=== PATIENT | male | born 1980 | race Caucasian/White ===

== ENCOUNTER 2017-12-18 18:55 | Emergency (ER) | payer MEDICAID, OTHER ==
[~2017-12-18] VITALS: Ht 182.9 cm; Wt 77.0 kg
[~2017-12-18 18:55] MED LIST: CYCL-1 PO; HYDR-569 PO; MELO-100 PO
[2017-12-18 19:00] VITALS: BP 131/91
[2017-12-18] MEDS ORDERED: VALA10002 PO (19:26)
== END 2017-12-18 19:42 | disposition home or self-care (01) ==
LOC: ER 18:57
DX: A60.01 Herpesviral infection of penis (principal); G89.29 Other chronic pain; Z79.899 Other long term (current) drug therapy
CPT/HCPCS: 99283

== ENCOUNTER 2017-12-31 11:33 | Emergency (ER) | payer MEDICAID, OTHER ==
[~2017-12-31] VITALS: Ht 647.4 cm; Wt 79.5 kg
[~2017-12-31 11:33] MED LIST changes: +VALA10002 PO
[2017-12-31 12:06] VITALS: BP 131/84
[2017-12-31] MEDS ORDERED: ibuprofen tablet 400 MG TABLET PO ONE (12:20)
[2017-12-31] MEDS ORDERED: bacitracin 15gm ointment TP ONE (12:20)
[2017-12-31] MEDS ORDERED: LIDOcaine 1.5% w/epinephrine 1:200,000 5ml ampul IJ ONE (12:20)
[2017-12-31] MEDS ORDERED: doxycycline hyclate 100mg tablet.DR PO ONE (12:20)
[2017-12-31] MEDS ORDERED: TETanus/Pertussis (Acell)/Diphther VAC/PF (Tdap-Adult) 0.5ml syringe IM ONE (12:20)
[2017-12-31] MEDS ORDERED: ondansetron 4mg rapidly disintigrating tab PO ONE (12:20)
[2017-12-31] MEDS ORDERED: DOXY100C43 PO (12:52)
[2017-12-31] MEDS ORDERED: ACYC-202 PO (12:52)
== END 2017-12-31 13:11 | disposition home or self-care (01) ==
LOC: ER 11:34
DX: L02.415 Cutaneous abscess of right lower limb (principal); N50.9 Disorder of male genital organs, unspecified; G89.29 Other chronic pain; Z98.890 Other specified postprocedural states; Z79.899 Other long term (current) drug therapy
CPT/HCPCS: 10060; 90471; 90715; 99284; A6255; A6266; A6449; J3490

== ENCOUNTER 2018-03-06 21:34 | Emergency (ER) | payer MEDICAID, OTHER ==
[~2018-03-06] VITALS: Ht 185.4 cm; Wt 74.0 kg
[2018-03-06 22:20] LABS: BASOPHILS # (AUTO) 0.1 X10'3 (0-0.2); BASOPHILS % (AUTO) 1.2 % (0-1); EOSINOPHILS # (AUTO) 0.1 X10'3 (0-0.9); EOSINOPHILS % (AUTO) 1.2 % (0-6); HEMATOCRIT 43.3 % (42.0-52.0); HEMOGLOBIN 15.1 g/dl (14.0-17.9); LYMPHOCYTES # (AUTO) 2.2 X10'3 (1.1-4.8); LYMPHOCYTES % (AUTO) 23.1 % (21-51); MEAN CORPUSCULAR HEMOGLOBIN 31.6 PG (27.0-31.0); MEAN CORPUSCULAR HGB CONC 34.8 % (33.0-36.5); MEAN CORPUSCULAR VOLUME 90.8 FL (78-98); MEAN PLATELET VOLUME 8.6 FL (7.4-10.4); MONOCYTES # (AUTO) 0.7 X10'3 (0-0.9); MONOCYTES % (AUTO) 7.7 % (2-12); NEUTROPHILS # (AUTO) 6.4 X10'3 (1.8-7.7); NEUTROPHILS % (AUTO) 66.8 % (42-75); PLATELET COUNT 214 X10'3 (140-440); RED BLOOD COUNT 4.77 X10'6 (4.70-6.10); RED CELL DISTRIBUTION WIDTH 13.5 % (11.5-14.5); WHITE BLOOD COUNT 9.6 X10'3 (4.5-11.0)
[2018-03-06] MEDS ORDERED: ondansetron/PF 4mg/2ml inj IV ONE (22:20)
[2018-03-06] MEDS ORDERED: morphine 4 MG/ML inj SYRINge IV ONE (22:20)
[2018-03-06] MEDS ORDERED: normal saline 1000ml 1,000 ML IV ONE (22:20)
[2018-03-06] MEDS ORDERED: iohexol 300mg/ml 100ml inj. ONE (22:26)
[2018-03-06 22:29] LABS: PROTHROMBIN TIME 10.5 SECONDS (9.0-12.0)
[2018-03-06 22:35] LABS: ALANINE AMINOTRANSFERASE 41 U/L (12-78); ALBUMIN/GLOBULIN RATIO 1.1 (1.1-1.5); ALKALINE PHOSPHATASE 92 IU/L (46-116); AMYLASE 40 U/L (25-115); ANION GAP 11 (8-16); ASPARTATE AMINO TRANSFERASE 31 U/L (10-37); BILIRUBIN,TOTAL 0.6 MG/DL (0.1-1.0); BLOOD UREA NITROGEN 15 MG/DL (7-18); BUN/CREATININE RATIO 13.3 (5.4-32.0); CHLORIDE 103 MMOL/L (99-107); CREATININE 1.13 MG/DL (0.60-1.10); GLUCOSE 100 MG/DL (70-104); LIPASE 112 U/L (73-393); SODIUM 137 MMOL/L (135-145); TOTAL CARBON DIOXIDE 23.2 MMOL/L (24-32); TOTAL PROTEIN 7.7 G/DL (6.4-8.2); eGFR 73 ML/MIN
[2018-03-07 00:41] LABS: CLARITY,URINE CLEAR (Clear); COLOR,URINE YELLOW (Yellow); GLUCOSE, URINE NEGATIVE (Neg); KETONES,URINE NEGATIVE (Neg); LEUKOCYTE ESTERASE ,URINE NEGATIVE (Neg); NITRITES, URINE NEGATIVE (Neg); OCCULT BLOOD,URINE NEGATIVE (Neg); PH,URINE 5.5 (4.8-8.0); PROTEIN,URINE NEGATIVE (Neg); UROBILINOGEN,URINE 0.2 E.U/dL (0.2-1.0)
[2018-03-07 00:49] LABS: UA COLLECTION TYPE CLN CATCH MIDSTREAM
[2018-03-07 00:51] LABS: URINE AMPHETAMINE SCREEN POSITIVE (Neg); URINE BARBITUATE SCREEN NEGATIVE (Neg); URINE BENZODIAZEPINES SCREEN NEGATIVE (Neg); URINE CANNABINOID SCREEN POSITIVE (Neg); URINE COCAINE SCREEN NEGATIVE (Neg); URINE METHADONE SCREEN NEGATIVE (Neg); URINE OPIATE SCREEN POSITIVE (Neg); URINE PHENCYCLIDINE SCREEN NEGATIVE (Neg)
[2018-03-07] MEDS ORDERED: methylnaltrexone br 12mg/0.6ml inj***SubQ only SQ ONE (01:25)
[2018-03-07] MEDS ORDERED: MAGN296S50 PO (01:28)
[2018-03-07 01:49] VITALS: BP 118/71
== END 2018-03-07 01:52 | disposition home or self-care (01) ==
LOC: ER 21:34
DX: K59.03 Drug induced constipation (principal); R10.31 Right lower quadrant pain; F15.10 Other stimulant abuse, uncomplicated; F11.10 Opioid abuse, uncomplicated; G89.29 Other chronic pain; Z98.890 Other specified postprocedural states; Z79.899 Other long term (current) drug therapy
CPT/HCPCS: 36415; 74177; 80053; 80305; 81003; 82150; 83690; 85025; 85610; 96372; 96374; 96375; 99285; J2270; J2405; J7030; Q9967

== ENCOUNTER 2018-12-02 23:52 | Emergency (ER) | payer OTHER ==
[~2018-12-02] VITALS: Ht 185.4 cm; Wt 77.2 kg
[~2018-12-02 23:52] MED LIST changes: +HYDR-4383 PO; -HYDR-569 PO; +MAGN296S50 PO
[2018-12-03 00:10] VITALS: BP 115/73
--- NOTE | 2018-12-03 01:08 | NUR ---
PT STATES HE THINKS HE'S BEEN RUNNING FEVERS LATELY, IS CONCERNED THAT HIS LEG MAY BE INFECTED AT THE SITE OF AN OLD COMPOUND FX. PT STATES THE SWELLING TO THE LEG IS NEW, SLIGHT SWELLING NOTED ABOUT 4 INCHES ABOVE HIS ANKLE
[2018-12-03] MEDS ORDERED: CEPH250T PO (02:16)
[2018-12-03] MEDS ORDERED: ketorolac trometh inj. 60 MG/2 ML VIAL IM ONE (02:20)
[2018-12-03] MEDS ORDERED: cephalexin 250mg capsule PO ONE (02:20)
== END 2018-12-03 03:04 | disposition home or self-care (01) ==
LOC: ER 23:53
DX: M79.604 Pain in right leg (principal); G89.29 Other chronic pain; Z79.2 Long term (current) use of antibiotics; Z79.899 Other long term (current) drug therapy; Z98.890 Other specified postprocedural states
CPT/HCPCS: 73590; 99283; J1885

== ENCOUNTER 2019-03-12 22:43 | Emergency (ER) | payer MEDICAID, OTHER ==
[~2019-03-12] VITALS: Ht 182.9 cm; Wt 55.1 kg
[~2019-03-12 22:43] MED LIST changes: +CLIN-96 PO; -CYCL-1 PO; -HYDR-4383 PO; -MAGN296S50 PO; -MELO-100 PO; +NO HOME MEDS; -VALA10002 PO
[2019-03-12] MEDS ORDERED: CEPH500C5 PO (23:38)
[2019-03-12] MEDS ORDERED: SULF1TAB49 PO (23:38)
[2019-03-12 23:42] LABS: BASOPHILS % (AUTO) 0.4 % (0-1); EOSINOPHILS # (AUTO) 0.3 X10'3 (0-0.9); EOSINOPHILS % (AUTO) 2.9 % (0-6); HEMATOCRIT 40.4 % (42.0-52.0); LYMPHOCYTES # (AUTO) 1.6 X10'3 (1.1-4.8); LYMPHOCYTES % (AUTO) 18.1 % (21-51); MEAN CORPUSCULAR HEMOGLOBIN 31.5 PG (27.0-31.0); MEAN CORPUSCULAR HGB CONC 34.6 g/dL (33.0-36.5); MEAN CORPUSCULAR VOLUME 90.9 FL (78-98); MEAN PLATELET VOLUME 8.1 FL (7.4-10.4); MONOCYTES # (AUTO) 0.8 X10'3 (0-0.9); MONOCYTES % (AUTO) 8.8 % (2-12); NEUTROPHILS # (AUTO) 6.3 X10'3 (1.8-7.7); NEUTROPHILS % (AUTO) 69.8 % (42-75); PLATELET COUNT 187 X10'3 (140-440); RED BLOOD COUNT 4.45 X10'6 (4.70-6.10); RED CELL DISTRIBUTION WIDTH 12.9 % (11.5-14.5)
[2019-03-13] LABS: ALANINE AMINOTRANSFERASE 33 U/L (12-78); ALBUMIN 3.8 G/DL (3.4-5.0); ALBUMIN/GLOBULIN RATIO 1.1 (1.1-1.5); ALKALINE PHOSPHATASE 111 IU/L (46-116); ANION GAP 8 (8-16); ASPARTATE AMINO TRANSFERASE 25 U/L (10-37); BILIRUBIN,TOTAL 0.3 MG/DL (0.1-1.0); BLOOD UREA NITROGEN 18 MG/DL (7-18); BUN/CREATININE RATIO 16.1 (5.4-32.0); CALCIUM 8.5 MG/DL (8.5-10.1); CHLORIDE 106 MMOL/L (99-107); CREATININE 1.12 MG/DL (0.60-1.10); GLUCOSE 101 MG/DL (70-104); POTASSIUM 3.4 MMOL/L (3.5-5.1); SODIUM 141 MMOL/L (135-145); TOTAL CARBON DIOXIDE 26.7 MMOL/L (24-32); TOTAL PROTEIN 7.4 G/DL (6.4-8.2); eGFR 74 ML/MIN
[2019-03-13 00:02] VITALS: BP 121/68
== END 2019-03-13 00:04 | disposition home or self-care (01) ==
LOC: ER 22:43
DX: L03.116 Cellulitis of left lower limb (principal); R59.0 Localized enlarged lymph nodes; G89.29 Other chronic pain; F15.90 Other stimulant use, unspecified, uncomplicated; Z98.890 Other specified postprocedural states; Z59.0 Homelessness; Z79.2 Long term (current) use of antibiotics
CPT/HCPCS: 36415; 80053; 85025; 99283

== ENCOUNTER 2020-02-03 16:36 | Emergency (ER) | payer OTHER ==
[~2020-02-03] VITALS: Ht 185.4 cm; Wt 78.0 kg
[~2020-02-03 16:36] MED LIST changes: -CLIN-96 PO; +CLIN-97 PO
[2020-02-03 16:56] VITALS: BP 122/69
[2020-02-03 17:18] LABS: CLARITY,URINE CLEAR (Clear); COLOR,URINE YELLOW (Yellow); GLUCOSE, URINE NEGATIVE (Neg); KETONES,URINE NEGATIVE (Neg); LEUKOCYTE ESTERASE ,URINE NEGATIVE (Neg); NITRITES, URINE NEGATIVE (Neg); OCCULT BLOOD,URINE NEGATIVE (Neg); PH,URINE 5.5 (4.8-8.0); PROTEIN,URINE NEGATIVE (Neg); UROBILINOGEN,URINE 0.2 E.U/dL (0.2-1.0)
[2020-02-03 17:23] LABS: UA COLLECTION TYPE CLN CATCH MIDSTREAM
[2020-02-03] MEDS ORDERED: DOXY100C76 PO (17:44)
[2020-02-03] MEDS ORDERED: CefTRIAXone 250MG IM Kit w/LIDOcaine IM ONE (17:45)
== END 2020-02-03 18:11 | disposition home or self-care (01) ==
LOC: ER 16:36
DX: Z20.2 Contact with and (suspected) exposure to infections with a predominantly sexual mode of transmission (principal); R30.0 Dysuria; N50.812 Left testicular pain; N50.811 Right testicular pain; G89.29 Other chronic pain; F15.90 Other stimulant use, unspecified, uncomplicated; Z59.0 Homelessness; Z98.890 Other specified postprocedural states; Z72.89 Other problems related to lifestyle; Z79.899 Other long term (current) drug therapy
CPT/HCPCS: 36415; 81003; 87491; 87591; 96372; 99283; J0696

== ENCOUNTER 2020-02-06 18:01 | Inpatient (IN) | payer MEDICAID, OTHER ==
[~2020-02-06] VITALS: Ht 185.4 cm; Wt 79.0 kg
[~2020-02-06 18:01] MED LIST changes: +DOXY100C76 PO
--- NOTE | 2020-02-06 18:58 | NUR ---
ASSISTING RN WITH PT CARE, PT IS 39 YO MALE C/O HIP AND BUTTOCK PAIN 04/30, +CHILLS, X1DAY, INJECTED DRIED BONG WATER IN LEFT AC TODAY AT 1100, PT WAS TREATED FOR STD 2 DAYS AGO, RECEIVED ROCEPHIN SHOT,
[2020-02-06 18:59] LABS: BASOPHILS % (AUTO) 0.2 % (0-1); EOSINOPHILS % (AUTO) 0.1 % (0-6); HEMATOCRIT 41.3 % (42.0-52.0); HEMOGLOBIN 14.1 g/dl (14.0-17.9); LYMPHOCYTES # (AUTO) 0.4 X10'3 (1.1-4.8); LYMPHOCYTES % (AUTO) 3.2 % (21-51); MEAN CORPUSCULAR HEMOGLOBIN 30.6 PG (27.0-31.0); MEAN CORPUSCULAR HGB CONC 34.3 g/dL (33.0-36.5); MEAN CORPUSCULAR VOLUME 89.5 FL (78-98); MEAN PLATELET VOLUME 8.5 FL (7.4-10.4); MONOCYTES # (AUTO) 0.3 X10'3 (0-0.9); MONOCYTES % (AUTO) 2.6 % (2-12); NEUTROPHILS # (AUTO) 12.1 X10'3 (1.8-7.7); NEUTROPHILS % (AUTO) 93.9 % (42-75); PLATELET COUNT 171 X10'3 (140-440); RED BLOOD COUNT 4.62 X10'6 (4.70-6.10); RED CELL DISTRIBUTION WIDTH 13.2 % (11.5-14.5); WHITE BLOOD COUNT 12.9 X10'3 (4.5-11.0)
[2020-02-06 19:14] LABS: ALANINE AMINOTRANSFERASE 31 U/L (12-78); ALBUMIN/GLOBULIN RATIO 1.2 (1.1-1.5); ALKALINE PHOSPHATASE 78 IU/L (46-116); ANION GAP 9 (8-16); ASPARTATE AMINO TRANSFERASE 27 U/L (10-37); BILIRUBIN,TOTAL 0.8 MG/DL (0.1-1.0); BLOOD UREA NITROGEN 11 MG/DL (7-18); BUN/CREATININE RATIO 8.3 (5.4-32.0); CALCIUM 8.6 MG/DL (8.5-10.1); CHLORIDE 103 MMOL/L (99-107); CREATININE 1.33 MG/DL (0.60-1.10); GLUCOSE 106 MG/DL (70-104); POTASSIUM 3.8 MMOL/L (3.5-5.1); SODIUM 137 MMOL/L (135-145); TOTAL CARBON DIOXIDE 24.9 MMOL/L (24-32); TOTAL PROTEIN 7.4 G/DL (6.4-8.2); eGFR 60 ML/MIN
[2020-02-06] MEDS ORDERED: acetaminophen 325mg tablet PO ONE (19:15)
[2020-02-06] MEDS ORDERED: LORazepam 2 mg/ml vial IV ONE (19:15)
[2020-02-06] MEDS ORDERED: piperacillin/tazo 3.375gm/50ml 50 ML IV ONE (20:00)
[2020-02-06] MEDS ORDERED: CefTRIAXone/D5W-Rocephin 1gm 50 ML IV ONE (20:00)
[2020-02-06] MEDS ORDERED: clindamycin 600mg/D5W 50ml 50 ML IV ONE (20:55)
[2020-02-06] MEDS ORDERED: mag hydrox/Alum hydrox/simeth 30ml oral suspension PO PRN (21:15)
[2020-02-06] MEDS ORDERED: ondansetron/PF 4mg/2ml inj IV PRN (21:15)
[2020-02-06] MEDS ORDERED: acetaminophen 325mg tablet PO PRN (21:15)
[2020-02-06] MEDS ORDERED: potassium CL 10mEq/100ml bag 100 ML IV PRN ×2 (21:15)
[2020-02-06] MEDS ORDERED: potassium Cl 20 mEq SR tablet PO PRN ×2 (21:15)
[2020-02-06] MEDS ORDERED: magnesium hydroxide 30ml (MOM) UD suspension PO PRN (21:15)
--- NOTE | 2020-02-06 21:54 | NUR ---
I have received report from Sandie, ED RN and had the opportunity to ask questions and assume patient care.
--- NOTE | 2020-02-06 22:05 | NUR ---
Patient arrives on unit in [facility] and ambulated to bed.
[2020-02-06] MEDS: normal saline 1000ml 1,000 ML IV SCH (22:13)
[2020-02-06 22:15] VITALS: BP 123/67
[2020-02-06] MEDS: HYDROcodone/acetaminophen 5mg/325mg tablet PO PRN (22:53)
[2020-02-07] MEDS: piperacillin/tazo 3.375gm/50ml 50 ML IV SCH ×3 (00:44→16:49)
[2020-02-07] MEDS: clindamycin 600mg/D5W 50ml 50 ML IV SCH ×3 (02:05→14:29)
[2020-02-07 02:16] VITALS: BP 116/76
[2020-02-07] MEDS: HYDROcodone/acetaminophen 5mg/325mg tablet PO PRN ×2 (05:36→19:07)
[2020-02-07] MEDS: normal saline 1000ml 1,000 ML IV SCH ×2 (05:37→17:13)
--- NOTE | 2020-02-07 05:40 | NUR ---
Patient c/o intermittent medial chest tightness when he moves in bed. Per Dr. Martinez, 02/05 CXR shows interstitial marking and that chest pain is expected. Informed patient that pain is expected and that a repeat CXR is ordered for today. [place] 5/325mg has been administered. Will continue to monitor.
--- NOTE | 2020-02-07 06:13 | NUR ---
Problems reprioritized. Patient report given, questions answered & plan of care reviewed with CARMELO Husain.
--- NOTE | 2020-02-07 06:25 | NUR ---
Patient in room ERVIN 346. I have received report from Alejandra RHODES and had the opportunity to ask questions and assume patient care.
[2020-02-07 06:51] LABS: BASOPHILS % (AUTO) 0.3 % (0-1); EOSINOPHILS % (AUTO) 0 % (0-6); HEMOGLOBIN 13.6 g/dl (14.0-17.9); LYMPHOCYTES # (AUTO) 0.5 X10'3 (1.1-4.8); LYMPHOCYTES % (AUTO) 6.8 % (21-51); MEAN CORPUSCULAR HEMOGLOBIN 30.9 PG (27.0-31.0); MEAN CORPUSCULAR HGB CONC 33.9 g/dL (33.0-36.5); MEAN PLATELET VOLUME 8.8 FL (7.4-10.4); MONOCYTES # (AUTO) 0.3 X10'3 (0-0.9); MONOCYTES % (AUTO) 4.3 % (2-12); NEUTROPHILS # (AUTO) 6.1 X10'3 (1.8-7.7); NEUTROPHILS % (AUTO) 88.6 % (42-75); PLATELET COUNT 145 X10'3 (140-440); RED CELL DISTRIBUTION WIDTH 13.4 % (11.5-14.5); WHITE BLOOD COUNT 6.9 X10'3 (4.5-11.0)
[2020-02-07 07:00] VITALS: BP 119/68
[2020-02-07 07:07] LABS: ALANINE AMINOTRANSFERASE 75 U/L (12-78); ALBUMIN 3.1 G/DL (3.4-5.0); ALBUMIN/GLOBULIN RATIO 0.9 (1.1-1.5); ALKALINE PHOSPHATASE 66 IU/L (46-116); ANION GAP 7 (8-16); ASPARTATE AMINO TRANSFERASE 77 U/L (10-37); BILIRUBIN,TOTAL 0.6 MG/DL (0.1-1.0); BLOOD UREA NITROGEN 11 MG/DL (7-18); BUN/CREATININE RATIO 9.6 (5.4-32.0); CALCIUM 7.8 MG/DL (8.5-10.1); CHLORIDE 103 MMOL/L (99-107); CREATININE 1.14 MG/DL (0.60-1.10); GLUCOSE 110 MG/DL (70-104); POTASSIUM 3.5 MMOL/L (3.5-5.1); SODIUM 137 MMOL/L (135-145); TOTAL PROTEIN 6.4 G/DL (6.4-8.2); eGFR 72 ML/MIN
[2020-02-07] MEDS: K and/or MAG REPLACEMENT MC SCH ×4 (08:00→20:00)
--- NOTE | 2020-02-07 08:42 | NUR ---
Patient denies any dysuria, blood in the urine and penile discharge when I asked him. Also, patient stated that his home meds of Doxycycline was prescribed for 7 days, he admitted that he did not finished the antibiotic treatment and that he only took it for 2 days.When I asked him why patient stated that he did not need to take it anymore as he felt better. Patient currently receiving Clindamycin IV and Zosyn IV in the hospital.
[2020-02-07] MEDS: heparin, porcine 5000 units/ml vial SQ SCH ×2 (09:01→19:10)
--- NOTE | 2020-02-07 09:14 | NUR ---
Patient tolerated the full liquid breakfast. Will discharge the patient Addendum: 02/07/20 at 0914 by Lisha Bentley RN Correction: Charted in the wrong patient chart
[2020-02-07] MEDS ORDERED: magnesium 4gm in 100ml NS 100 ML IV PRN (10:35)
[2020-02-07] MEDS ORDERED: magnesium Cl slow-release 64mg tablet PO PRN (10:35)
[2020-02-07 11:00] VITALS: BP 103/65
--- NOTE | 2020-02-07 11:20 | NUR ---
Coronavirus test done as per MD order. Specimen sent to the lab
[2020-02-07 12:50] LABS: HIV ANTIBODY 1&2 RAPID NON-REACTIVE (Neg)
--- NOTE | 2020-02-07 13:20 | NUR ---
Dr. Kimbrough seen the patient. Dr. Kimbrough told me that he had told patient that he is not allowed to leave the floor or the building and that if he does it will be an AMA. I told Dr. Kimbrough that patient also asked me about this and that I told patient that he is not allowed to leave the building or the unit. Charge nurse Tiana notified about this.
[2020-02-07 14:44] LABS: CLARITY,URINE CLEAR (Clear); COLOR,URINE YELLOW (Yellow); GLUCOSE, URINE NEGATIVE (Neg); KETONES,URINE NEGATIVE (Neg); LEUKOCYTE ESTERASE ,URINE NEGATIVE (Neg); NITRITES, URINE NEGATIVE (Neg); OCCULT BLOOD,URINE NEGATIVE (Neg); PH,URINE 6.5 (4.8-8.0); PROTEIN,URINE NEGATIVE (Neg); UROBILINOGEN,URINE 0.2 E.U/dL (0.2-1.0)
[2020-02-07 14:45] LABS: UA COLLECTION TYPE NON-SPECIFIED
[2020-02-07 14:49] LABS: URINE AMPHETAMINE SCREEN POSITIVE (Neg); URINE BARBITUATE SCREEN NEGATIVE (Neg); URINE BENZODIAZEPINES SCREEN NEGATIVE (Neg); URINE CANNABINOID SCREEN NEGATIVE (Neg); URINE COCAINE SCREEN NEGATIVE (Neg); URINE METHADONE SCREEN NEGATIVE (Neg); URINE OPIATE SCREEN POSITIVE (Neg); URINE PHENCYCLIDINE SCREEN NEGATIVE (Neg)
[2020-02-07] MEDS: vancomycin/NS 1 GM ADD-VANTAGE 250 ML X 1 DOSE IV SCH ×2 (15:16→23:45)
--- NOTE | 2020-02-07 16:24 | NUR ---
Patient stated he must have his cellphone home care chaplain (i.e., white home care chaplain with the white cord as per patient description) left from the the ER, belonging list stated that patient came with cellphone and home care chaplain. I called ER dept, spoke to someone in the ER about the patient looking for his cellphone home care chaplain - the staff said he will look for it and will call if they found it.
[2020-02-07 18:00] VITALS: BP 108/72
--- NOTE | 2020-02-07 18:00 | NUR ---
Patient in room ER[facility]IN 346. I have received report from Lisha RHODES and had the opportunity to ask questions and assume patient care.
[2020-02-07] MEDS: lactobacillus rhamnosus 10,000 MMU CELLS/CAPSULE PO SCH (19:06)
--- NOTE | 2020-02-07 19:09 | NUR ---
Problems reprioritized. Patient report given, questions answered & plan of care reviewed with Hyacinth RHODES.
--- NOTE | 2020-02-07 22:30 | NUR ---
patient complained of tightness is the lower chest area. I gave him some maalox and he states he feels better and that the maalox took the pain away
[2020-02-07 23:27] VITALS: BP 124/74
[2020-02-08] MEDS: piperacillin/tazo 3.375gm/50ml 50 ML IV SCH ×2 (02:17→09:27)
[2020-02-08 05:26] LABS: BASOPHILS % (AUTO) 0.8 % (0-1); EOSINOPHILS # (AUTO) 0.1 X10'3 (0-0.9); EOSINOPHILS % (AUTO) 3.4 % (0-6); HEMATOCRIT 39.3 % (42.0-52.0); HEMOGLOBIN 13.2 g/dl (14.0-17.9); LYMPHOCYTES # (AUTO) 1.3 X10'3 (1.1-4.8); LYMPHOCYTES % (AUTO) 31.2 % (21-51); MEAN CORPUSCULAR HEMOGLOBIN 30.6 PG (27.0-31.0); MEAN CORPUSCULAR HGB CONC 33.7 g/dL (33.0-36.5); MEAN CORPUSCULAR VOLUME 90.9 FL (78-98); MEAN PLATELET VOLUME 8.7 FL (7.4-10.4); MONOCYTES # (AUTO) 0.5 X10'3 (0-0.9); MONOCYTES % (AUTO) 11.2 % (2-12); NEUTROPHILS # (AUTO) 2.2 X10'3 (1.8-7.7); NEUTROPHILS % (AUTO) 53.4 % (42-75); PLATELET COUNT 120 X10'3 (140-440); RED BLOOD COUNT 4.32 X10'6 (4.70-6.10); RED CELL DISTRIBUTION WIDTH 13.4 % (11.5-14.5); WHITE BLOOD COUNT 4.2 X10'3 (4.5-11.0)
[2020-02-08 05:39] LABS: ALANINE AMINOTRANSFERASE 170 U/L (12-78); ALBUMIN 2.8 G/DL (3.4-5.0); ALBUMIN/GLOBULIN RATIO 0.8 (1.1-1.5); ALKALINE PHOSPHATASE 86 IU/L (46-116); ANION GAP 6 (8-16); ASPARTATE AMINO TRANSFERASE 118 U/L (10-37); BILIRUBIN,TOTAL 0.3 MG/DL (0.1-1.0); BLOOD UREA NITROGEN 8 MG/DL (7-18); BUN/CREATININE RATIO 8.2 (5.4-32.0); CALCIUM 8.2 MG/DL (8.5-10.1); CHLORIDE 107 MMOL/L (99-107); CREATININE 0.98 MG/DL (0.60-1.10); GLUCOSE 96 MG/DL (70-104); PHOSPHORUS 2.5 MG/DL (2.3-4.5); POTASSIUM 4.4 MMOL/L (3.5-5.1); SODIUM 141 MMOL/L (135-145); TOTAL CARBON DIOXIDE 28.5 MMOL/L (24-32); TOTAL PROTEIN 6.1 G/DL (6.4-8.2); eGFR 86 ML/MIN
--- NOTE | 2020-02-08 06:09 | NUR ---
Problems reprioritized. Patient report given, questions answered & plan of care reviewed with Maria E RHODES.
--- NOTE | 2020-02-08 06:24 | NUR ---
Patient in room ERVIN 346A. I have received report from CARMELO NOWAK and had the opportunity to ask questions and assume patient care.
[2020-02-08 07:00] VITALS: BP 117/79
[2020-02-08] MEDS: lactobacillus rhamnosus 10,000 MMU CELLS/CAPSULE PO SCH (07:25)
[2020-02-08] MEDS: vancomycin/NS 1 GM ADD-VANTAGE 250 ML X 1 DOSE IV SCH (07:25)
[2020-02-08] MEDS: heparin, porcine 5000 units/ml vial SQ SCH (07:25)
[2020-02-08] MEDS: normal saline 1000ml 1,000 ML IV SCH (07:26)
[2020-02-08] MEDS: K and/or MAG REPLACEMENT MC SCH ×2 (07:26→07:27)
[2020-02-08 11:00] VITALS: BP 105/64
[2020-02-08] MEDS ORDERED: LACT1CAP26 PO (12:16)
[2020-02-08] MEDS ORDERED: CEFD300C3 PO (12:16)
[2020-02-08] MEDS ORDERED: SULF1TAB49 PO (12:16)
[2020-02-08] MEDS ORDERED: VANCOMYCIN LEVEL IV ONE (14:30)
--- NOTE | 2020-02-08 19:56 | NUR ---
PATIENT APPROPRIATE AND STABLE FOR DISCHARGE, IV TAKEN OUT, EDUCATION GIVEN, MEDS SENT TO PREFERRED PHARMACY, ALL BELONGINGS SENT WITH PATIENT, PATIENT WALKED DOWN TO LOBBY TO AN AWAITING CAR WHERE SIGNIFICANT OTHER WILL TAKE PATIENT HOME.
[2020-02-09 13:23] LABS: HBSAG SCREEN Negative (Negative); HEPATITIS C ANTIBODY <0.1 s/co ratio (0.0-0.9)
== END 2020-02-08 13:15 | disposition home or self-care (01) | DRG 776 ==
LOC: ER 18:02 → SUR 3N 21:13
PROVIDERS: ADMIT Internal Medicine; ATTEND Family Medicine
DX: F15.188 Other stimulant abuse with other stimulant-induced disorder (principal); R50.9 Fever, unspecified; R65.10 Systemic inflammatory response syndrome (SIRS) of non-infectious origin without acute organ dysfunction; G89.29 Other chronic pain; F15.10 Other stimulant abuse, uncomplicated; Z20.828 Contact with and (suspected) exposure to other viral communicable diseases; M54.9 Dorsalgia, unspecified; R00.0 Tachycardia, unspecified; Z59.0 Homelessness; Z79.899 Other long term (current) drug therapy; Z71.51 Drug abuse counseling and surveillance of drug abuser
CPT/HCPCS: 36415; 71045; 80053; 80305; 81003; 83605; 83735; 84100; 84145; 84443; 84484; 85025; 86703; 86705; 86706; 86709; 86803; 87040; 87081; 87340; 87635; 93005; 93306; 96365; 96367; 96375; 99285; G0378; J0696; J1644; J2060; J2543; J3370; J3490; J7030

== ENCOUNTER 2020-03-20 17:05 | Emergency (ER) | payer MEDICAID ==
[~2020-03-20] VITALS: Ht 182.9 cm; Wt 79.8 kg
[~2020-03-20 17:05] MED LIST changes: -CLIN-97 PO; -DOXY100C76 PO; +LACT1CAP26 PO; -NO HOME MEDS
[2020-03-20 17:14] VITALS: BP 124/83
[2020-03-20] MEDS ORDERED: AZIT250T27 PO (17:35)
[2020-03-20] MEDS ORDERED: PRED20TA PO (17:35)
[2020-03-20] MEDS ORDERED: predniSONE 20 mg tablet PO ONE (17:35)
== END 2020-03-20 17:50 | disposition home or self-care (01) ==
LOC: ER 17:06
DX: K12.2 Cellulitis and abscess of mouth (principal); J02.9 Acute pharyngitis, unspecified; G89.29 Other chronic pain; F15.90 Other stimulant use, unspecified, uncomplicated; Z59.0 Homelessness; Z79.2 Long term (current) use of antibiotics; Z79.899 Other long term (current) drug therapy
CPT/HCPCS: 99283; J7512

== ENCOUNTER 2020-08-22 17:38 | Emergency (ER) | payer MEDICAID, OTHER ==
[~2020-08-22] VITALS: Ht 185.4 cm; Wt 84.1 kg
[2020-08-22 17:43] VITALS: BP 130/77
[2020-08-22] MEDS ORDERED: DOXYCYCLINE 100MG CAPSULE PO STA (17:57)
[2020-08-22] MEDS ORDERED: CefTRIAXone 1000mg IM Kit (w/lidocaine diluent) IM ONE (18:00)
[2020-08-22] MEDS ORDERED: DOXY100C43 PO (18:04)
[2020-08-22] MEDS ORDERED: potassium Cl 20 mEq SR tablet PO ONE (18:10)
[2020-08-22] MEDS ORDERED: potassium 10mEq/100ml NS w/LIDOcaine (10mg/bag) IV SCH (18:10)
[2020-08-22] MEDS ORDERED: potassium CL 10mEq/100ml bag 100 ML IV ONE (18:15)
== END 2020-08-22 18:39 | disposition home or self-care (01) ==
LOC: ER 17:39
DX: N45.1 Epididymitis (principal); G89.29 Other chronic pain; F17.200 Nicotine dependence, unspecified, uncomplicated; F15.90 Other stimulant use, unspecified, uncomplicated; Z59.0 Homelessness; Z72.89 Other problems related to lifestyle; Z87.312 Personal history of (healed) stress fracture; Z86.19 Personal history of other infectious and parasitic diseases; Z79.2 Long term (current) use of antibiotics; Z79.899 Other long term (current) drug therapy
CPT/HCPCS: 36415; 87491; 87591; 96372; 99283; J0696

== ENCOUNTER 2020-09-12 14:22 | Emergency (ER) | payer SELFPAY ==
[~2020-09-12] VITALS: Ht 182.9 cm; Wt 56.0 kg
[~2020-09-12 14:22] MED LIST changes: +DOXY100C43 PO
[2020-09-12 14:26] VITALS: BP 119/72
--- NOTE | 2020-09-12 18:03 | NUR ---
Attempted to call patient back for the third time and he was not in lobby. Called patient at listed number, no answered. Left voicemail. Dr. Joiner in aware.
== END 2020-09-12 18:06 | disposition left against medical advice (07) ==
LOC: ER 14:23
DX: N50.89 Other specified disorders of the male genital organs (principal); Z53.21 Procedure and treatment not carried out due to patient leaving prior to being seen by health care provider

== ENCOUNTER 2020-11-06 11:58 | Emergency (ER) | payer MEDICAID ==
[~2020-11-06] VITALS: Ht 182.9 cm; Wt 79.5 kg
[~2020-11-06 11:58] MED LIST changes: -DOXY100C43 PO
[2020-11-06 12:00] VITALS: BP 118/66
[2020-11-06 12:19] LABS: CLARITY,URINE SLIGHTLY CLOUDY (Clear); COLOR,URINE YELLOW (Yellow); GLUCOSE, URINE NEGATIVE (Neg); KETONES,URINE NEGATIVE (Neg); LEUKOCYTE ESTERASE ,URINE TRACE (Neg); NITRITES, URINE NEGATIVE (Neg); OCCULT BLOOD,URINE NEGATIVE (Neg); PH,URINE 6.5 (4.8-8.0); PROTEIN,URINE NEGATIVE (Neg); UROBILINOGEN,URINE 0.2 E.U/dL (0.2-1.0)
[2020-11-06 12:26] LABS: UA COLLECTION TYPE CLN CATCH MIDSTREAM
[2020-11-06 12:27] LABS: MUCUS STRANDS FEW /LPF (Neg)
[2020-11-06 12:28] LABS: WBC,URINE 20-30 /HPF (0-4)
[2020-11-06 12:29] LABS: BACTERIA,URINE FEW /HPF (Neg); RBC,URINE 0-2 /HPF (0-2); SQUAMOUS EPITHELIAL CELL,UR NONE SEEN /LPF (FEW)
[2020-11-06] MEDS ORDERED: ketorolac tromethamine 15mg/ml inj. IM ONE (12:35)
[2020-11-06] MEDS ORDERED: orphenadrine citrate 60mg/2ml inj. IM ONE (12:35)
[2020-11-06] MEDS ORDERED: CYCL-1 PO (14:30)
[2020-11-06] MEDS ORDERED: IBUP-1984 PO (14:30)
== END 2020-11-06 14:58 | disposition home or self-care (01) ==
LOC: ER 11:58
DX: S22.050A Wedge compression fracture of T5-T6 vertebra, initial encounter for closed fracture (principal); M79.18 Myalgia, other site; N15.9 Renal tubulo-interstitial disease, unspecified; R07.81 Pleurodynia; G89.29 Other chronic pain; F15.90 Other stimulant use, unspecified, uncomplicated; Z98.890 Other specified postprocedural states; Z72.89 Other problems related to lifestyle; Z59.0 Homelessness; Z79.899 Other long term (current) drug therapy; X58.XXXA Exposure to other specified factors, initial encounter; Y93.89 Activity, other specified; Y92.89 Other specified places as the place of occurrence of the external cause; Y99.8 Other external cause status
CPT/HCPCS: 71045; 71250; 81001; 87088; 96372; 99285; J1885; J2360

== ENCOUNTER 2021-01-14 03:22 | Emergency (ER) | payer MEDICAID, OTHER ==
[~2021-01-14] VITALS: Ht 182.9 cm; Wt 81.8 kg
[~2021-01-14 03:22] MED LIST changes: +CYCL-1 PO
[2021-01-14 03:27] VITALS: BP 128/90
[2021-01-14] MEDS ORDERED: ondansetron 4mg rapidly disintigrating tab PO ONE (03:35)
[2021-01-14] MEDS ORDERED: ketorolac trometh. 30mg/ml inj. IM ONE (03:35)
[2021-01-14] MEDS: HYDROcodone/acetaminophen 10/325mg tab PO ONE ×2 (03:40→04:48)
--- NOTE | 2021-01-14 03:57 | NUR ---
Pt given toradol shot and norco and zofran. Also given yogurt and a popsicle.
== END 2021-01-14 05:00 | disposition home or self-care (01) ==
LOC: ER 03:23
DX: K08.89 Other specified disorders of teeth and supporting structures (principal); R06.02 Shortness of breath; G89.29 Other chronic pain; F15.90 Other stimulant use, unspecified, uncomplicated; Z72.89 Other problems related to lifestyle; Z59.0 Homelessness; Z98.890 Other specified postprocedural states; Z79.899 Other long term (current) drug therapy
CPT/HCPCS: 96372; 99283; J1885

== ENCOUNTER 2021-01-27 23:29 | Emergency (ER) | payer SELFPAY ==
[~2021-01-27] VITALS: Ht 182.9 cm; Wt 81.8 kg
[2021-01-27 23:47] VITALS: BP 121/82
[2021-01-28] MEDS ORDERED: CEPH-585 PO ×3 (01:03→01:04)
[2021-01-28] MEDS ORDERED: cephalexin 500mg capsule PO ONE (01:05)
== END 2021-01-28 01:43 | disposition home or self-care (01) ==
LOC: ER 23:30
DX: S70.12XA Contusion of left thigh, initial encounter (principal); S50.812A Abrasion of left forearm, initial encounter; S80.212A Abrasion, left knee, initial encounter; G89.29 Other chronic pain; L03.114 Cellulitis of left upper limb; F15.90 Other stimulant use, unspecified, uncomplicated; Z72.89 Other problems related to lifestyle; Z98.890 Other specified postprocedural states; Z59.0 Homelessness; Z79.899 Other long term (current) drug therapy; V29.9XXA Motorcycle rider (driver) (passenger) injured in unspecified traffic accident, initial encounter; Y93.89 Activity, other specified; Y92.488 Other paved roadways as the place of occurrence of the external cause; Y99.8 Other external cause status
CPT/HCPCS: 99283

== ENCOUNTER 2021-03-22 23:07 | Emergency (ER) | payer MEDICAID ==
[~2021-03-22] VITALS: Ht 182.9 cm; Wt 81.8 kg
[~2021-03-22 23:07] MED LIST changes: +CEPH-585 PO
[2021-03-23] MEDS ORDERED: morphine 4 MG/ML inj SYRINge IM ONE (01:40)
[2021-03-23] MEDS ORDERED: HYDR-3965 PO (01:41)
[2021-03-23] MEDS ORDERED: CYCL-394 PO (01:47)
[2021-03-23 01:56] VITALS: BP 125/85
== END 2021-03-23 01:57 | disposition home or self-care (01) ==
LOC: ER 23:07
DX: S50.312A Abrasion of left elbow, initial encounter (principal); S50.311A Abrasion of right elbow, initial encounter; R07.89 Other chest pain; G89.29 Other chronic pain; F15.90 Other stimulant use, unspecified, uncomplicated; Z98.890 Other specified postprocedural states; Z72.89 Other problems related to lifestyle; Z59.0 Homelessness; Z79.2 Long term (current) use of antibiotics; Z79.899 Other long term (current) drug therapy; V29.9XXA Motorcycle rider (driver) (passenger) injured in unspecified traffic accident, initial encounter; Y93.89 Activity, other specified; Y92.89 Other specified places as the place of occurrence of the external cause; Y99.8 Other external cause status
CPT/HCPCS: 70450; 72125; 72128; 72131; 72192; 73110; 73130; 96372; 99285; J2270

== ENCOUNTER 2021-04-28 10:43 | Emergency (ER) | payer MEDICAID ==
[~2021-04-28] VITALS: Ht 182.9 cm; Wt 81.0 kg
[2021-04-28 11:57] LABS: BASOPHILS % (AUTO) 0.5 % (0-1); EOSINOPHILS # (AUTO) 0.2 X10'3 (0-0.9); EOSINOPHILS % (AUTO) 2.3 % (0-6); HEMATOCRIT 39.3 % (42.0-52.0); HEMOGLOBIN 13.6 g/dl (14.0-17.9); LYMPHOCYTES % (AUTO) 30.3 % (21-51); MEAN CORPUSCULAR HEMOGLOBIN 31.3 PG (27.0-31.0); MEAN CORPUSCULAR HGB CONC 34.7 g/dL (33.0-36.5); MEAN CORPUSCULAR VOLUME 90.4 FL (78-98); MEAN PLATELET VOLUME 8.6 FL (7.4-10.4); MONOCYTES # (AUTO) 0.6 X10'3 (0-0.9); MONOCYTES % (AUTO) 9.3 % (2-12); NEUTROPHILS # (AUTO) 3.8 X10'3 (1.8-7.7); NEUTROPHILS % (AUTO) 57.6 % (42-75); PLATELET COUNT 218 X10'3 (140-440); RED BLOOD COUNT 4.35 X10'6 (4.70-6.10); RED CELL DISTRIBUTION WIDTH 13.2 % (11.5-14.5); WHITE BLOOD COUNT 6.7 X10'3 (4.5-11.0)
[2021-04-28 12:03] LABS: ALANINE AMINOTRANSFERASE 21 U/L (12-78); ALBUMIN 3.5 G/DL (3.4-5.0); ALKALINE PHOSPHATASE 103 IU/L (46-116); ANION GAP 10 (8-16); ASPARTATE AMINO TRANSFERASE 21 U/L (10-37); BILIRUBIN,TOTAL 0.2 MG/DL (0.1-1.0); BLOOD UREA NITROGEN 13 MG/DL (7-18); BUN/CREATININE RATIO 15.3 (5.4-32.0); CALCIUM 8.2 MG/DL (8.5-10.1); CHLORIDE 105 MMOL/L (99-107); CREATININE 0.85 MG/DL (0.60-1.10); GLUCOSE 104 MG/DL (70-104); POTASSIUM 3.8 MMOL/L (3.5-5.1); SODIUM 141 MMOL/L (135-145); TOTAL CARBON DIOXIDE 25.6 MMOL/L (24-32); eGFR > 90 ML/MIN
[2021-04-28 12:32] VITALS: BP 121/79
== END 2021-04-28 13:39 | disposition home or self-care (01) ==
LOC: ER 10:44
DX: R07.89 Other chest pain (principal); M79.602 Pain in left arm; M54.2 Cervicalgia; F15.90 Other stimulant use, unspecified, uncomplicated; Z72.89 Other problems related to lifestyle; Z59.00 Homelessness unspecified; Z79.2 Long term (current) use of antibiotics; Z79.899 Other long term (current) drug therapy; V29.9XXA Motorcycle rider (driver) (passenger) injured in unspecified traffic accident, initial encounter; Y93.89 Activity, other specified; Y92.89 Other specified places as the place of occurrence of the external cause; Y99.8 Other external cause status
CPT/HCPCS: 36415; 71045; 72125; 80053; 83880; 84484; 85025; 99285

== ENCOUNTER 2021-05-18 10:29 | Emergency (ER) | payer MEDICAID ==
[~2021-05-18] VITALS: Ht 182.9 cm; Wt 81.6 kg
--- NOTE | 2021-05-18 11:23 | NUR ---
PT ARRIVED TO ROOM FROM CT 1111
[2021-05-18] MEDS ORDERED: morphine 4 MG/ML inj SYRINge IV ONE (11:35)
[2021-05-18] MEDS ORDERED: ondansetron/PF 4mg/2ml inj IV ONE (11:35)
[2021-05-18 12:02] VITALS: BP 130/88
[2021-05-18] MEDS ORDERED: ketorolac trometh. 30mg/ml inj. IV ONE (13:15)
[2021-05-18] MEDS ORDERED: acetaminophen 325mg tablet PO ONE (13:15)
[2021-05-18] MEDS ORDERED: HYDR-3965 PO (13:35)
[2021-05-18] MEDS ORDERED: CYCL-1 PO (13:35)
== END 2021-05-18 13:44 | disposition home or self-care (01) ==
LOC: ER 10:30
DX: S80.212A Abrasion, left knee, initial encounter (principal); S80.211A Abrasion, right knee, initial encounter; M79.675 Pain in left toe(s); M54.2 Cervicalgia; M25.552 Pain in left hip; M25.561 Pain in right knee; G89.29 Other chronic pain; F15.90 Other stimulant use, unspecified, uncomplicated; Z98.890 Other specified postprocedural states; Z72.89 Other problems related to lifestyle; Z59.00 Homelessness unspecified; Z79.2 Long term (current) use of antibiotics; Z79.899 Other long term (current) drug therapy; V89.2XXA Person injured in unspecified motor-vehicle accident, traffic, initial encounter; Y93.89 Activity, other specified; Y92.89 Other specified places as the place of occurrence of the external cause; Y99.8 Other external cause status
CPT/HCPCS: 70450; 71046; 72125; 72128; 72170; 73110; 73130; 73564; 73660; 96374; 96375; 99285; J1885; J2270; J2405

== ENCOUNTER 2022-04-02 11:04 | Emergency (ER) | payer MEDICAID ==
[~2022-04-02] VITALS: Ht 182.9 cm; Wt 81.8 kg
[2022-04-02 11:07] VITALS: BP 129/82
== END 2022-04-02 12:43 | disposition home or self-care (01) ==
LOC: ER 11:05
DX: S61.411A Laceration without foreign body of right hand, initial encounter (principal); G89.29 Other chronic pain; F15.90 Other stimulant use, unspecified, uncomplicated; Z98.890 Other specified postprocedural states; Z72.89 Other problems related to lifestyle; Z79.2 Long term (current) use of antibiotics; Z79.899 Other long term (current) drug therapy; V89.2XXA Person injured in unspecified motor-vehicle accident, traffic, initial encounter; Y93.89 Activity, other specified; Y92.89 Other specified places as the place of occurrence of the external cause; Y99.8 Other external cause status
CPT/HCPCS: 29125; 73080; 73130; 73140; 99284; A6449

== ENCOUNTER 2022-09-16 16:17 | Emergency (ER) | payer MEDICAID ==
[~2022-09-16] VITALS: Ht 182.9 cm; Wt 86.0 kg
[2022-09-16 16:20] VITALS: BP 133/71
[2022-09-16] MEDS ORDERED: HYDROcodone/acetaminophen 5mg/325mg tablet PO ONE (16:35)
[2022-09-16] MEDS ORDERED: LIDOcaine 1% W/epiNEPHrine 1:100,000 20ml vial SQ ONE (16:35)
[2022-09-16] MEDS ORDERED: LIDOCAINE 2%/EPI 1:100,000 inj. Multi-dose 20 ML VIAL SQ ONE (16:40)
[2022-09-16] MEDS ORDERED: ondansetron 4mg rapidly disintigrating tab PO ONE (17:05)
[2022-09-16] MEDS ORDERED: cephalexin 500mg capsule PO ONE (17:35)
[2022-09-16] MEDS ORDERED: CEPH500C81 PO (17:45)
== END 2022-09-16 18:21 | disposition home or self-care (01) ==
LOC: ER 16:17
DX: S71.111A Laceration without foreign body, right thigh, initial encounter (principal); G89.29 Other chronic pain; F15.90 Other stimulant use, unspecified, uncomplicated; Z72.89 Other problems related to lifestyle; Z98.890 Other specified postprocedural states; Z79.899 Other long term (current) drug therapy; W29.3XXA Contact with powered garden and outdoor hand tools and machinery, initial encounter; Y93.89 Activity, other specified; Y92.89 Other specified places as the place of occurrence of the external cause; Y99.8 Other external cause status
CPT/HCPCS: 12002; 99284; A6258; A6449

== ENCOUNTER 2022-11-25 07:49 | Emergency (ER) | payer MEDICAID ==
[~2022-11-25] VITALS: Ht 182.9 cm; Wt 86.4 kg
[2022-11-25 07:58] VITALS: BP 145/80
--- NOTE | 2022-11-25 08:12 | NUR ---
urine specimen cup given to patient
--- NOTE | 2022-11-25 08:12 | NUR ---
Patient reported history of herpes like 2 years ago. Patient denied penile discharge but admitted presence of blisters on his genital area.
[2022-11-25] MEDS ORDERED: VALA100031 PO (09:22)
== END 2022-11-25 09:39 | disposition home or self-care (01) ==
LOC: ER 07:49
DX: A60.00 Herpesviral infection of urogenital system, unspecified (principal); F17.200 Nicotine dependence, unspecified, uncomplicated; F15.20 Other stimulant dependence, uncomplicated
CPT/HCPCS: 99283

== ENCOUNTER 2023-06-12 12:05 | Inpatient (IN) | payer SELFPAY ==
[~2023-06-12] VITALS: Ht 185.4 cm; Wt 85.1 kg
[~2023-06-12 12:05] MED LIST changes: +VALA100031 PO
[2023-06-12 12:34] LABS: BASOPHILS % (AUTO) 0.1 % (0-1); EOSINOPHILS % (AUTO) 0.1 % (0-6); HEMATOCRIT 44.5 % (42.0-52.0); LYMPHOCYTES # (AUTO) 0.2 X10'3 (1.1-4.8); LYMPHOCYTES % (AUTO) 1.4 % (21-51); MEAN CORPUSCULAR HEMOGLOBIN 30.5 PG (27.0-31.0); MEAN CORPUSCULAR HGB CONC 33.7 g/dL (33.0-36.5); MEAN CORPUSCULAR VOLUME 90.7 FL (78-98); MEAN PLATELET VOLUME 8.8 FL (7.4-10.4); MONOCYTES # (AUTO) 0.1 X10'3 (0-0.9); MONOCYTES % (AUTO) 0.5 % (2-12); NEUTROPHILS # (AUTO) 15.8 X10'3 (1.8-7.7); NEUTROPHILS % (AUTO) 97.9 % (42-75); PLATELET COUNT 196 X10'3 (140-440); RED CELL DISTRIBUTION WIDTH 13.7 % (11.5-14.5); WHITE BLOOD COUNT 16.1 X10'3 (4.5-11.0)
[2023-06-12 12:48] LABS: ALANINE AMINOTRANSFERASE 377 U/L (12-78); ALBUMIN 3.4 G/DL (3.4-5.0); ALBUMIN/GLOBULIN RATIO 1.1 (1.1-1.5); ALKALINE PHOSPHATASE 160 IU/L (46-116); ANION GAP 8 (8-16); ASPARTATE AMINO TRANSFERASE 696 U/L (10-37); BILIRUBIN,TOTAL 1.5 MG/DL (0.1-1.0); BLOOD UREA NITROGEN 15 MG/DL (7-18); BUN/CREATININE RATIO 7.8 (10.0-20.0); CALCIUM 8.9 MG/DL (8.5-10.1); CHLORIDE 99 MMOL/L (99-107); CREATININE 1.92 MG/DL (0.60-1.10); GLUCOSE 131 MG/DL (70-104); SODIUM 131 MMOL/L (135-145); TOTAL CARBON DIOXIDE 24.2 MMOL/L (24-32); TOTAL PROTEIN 6.6 G/DL (6.4-8.2); eCRCL 57 ML/MIN; eGFR 39 ML/MIN
[2023-06-12 12:54] LABS: PRO BRAIN NATRIURETIC PEPTIDE 64 PG/ML (0-125)
[2023-06-12] MEDS ORDERED: normal saline 1000ml 1,000 ML IV ONE ×2 (14:10→16:45)
[2023-06-12] MEDS ORDERED: CefTRIAXone 2gm/D5W 50ml BAG 50 ML IV ONE (16:10)
[2023-06-12] MEDS ORDERED: vancomycin/NS 1 GM ADD-VANTAGE 250 ML IV ONE (16:10)
[2023-06-12] MEDS ORDERED: iohexol 300mg/ml 100ml inj. ONE (17:05)
[2023-06-12] MEDS ORDERED: magnesium hydroxide 30ml (MOM) UD suspension PO PRN (18:30)
[2023-06-12] MEDS ORDERED: potassium Cl 20 mEq SR tablet PO PRN ×2 (18:30)
[2023-06-12] MEDS ORDERED: potassium Cl 40MEQ/1/2NS 520ml 520 ML IV PRN (18:30)
[2023-06-12] MEDS ORDERED: magnesium 2GM in 50ml NS 50 ML IV PRN (18:30)
[2023-06-12] MEDS ORDERED: mag hydrox/Alum hydrox/simeth 30ml oral suspension PO PRN (18:30)
[2023-06-12] MEDS ORDERED: acetaminophen 325mg tablet PO PRN (18:30)
[2023-06-12] MEDS ORDERED: magnesium 4gm in 100ml NS 100 ML IV PRN (18:30)
[2023-06-12] MEDS ORDERED: magnesium Cl slow-release 64mg tablet PO PRN (18:30)
[2023-06-12] MEDS ORDERED: ondansetron/PF 4mg/2ml inj IV PRN (18:30)
[2023-06-12] MEDS ORDERED: sincalide inj 1.7 MCG in normal saline 100ml IV soln 100 ML IV ONE (18:35)
--- NOTE | 2023-06-12 18:45 | NUR ---
PER MD FLYNN HANG D5 1/2 NS MAINTANCE FLUIDS.
[2023-06-12] MEDS: K and/or MAG REPLACEMENT MC SCH (20:00)
[2023-06-12] MEDS: docusate sod 100mg capsule PO SCH (20:00)
--- NOTE | 2023-06-12 20:30 | NUR ---
Note greg in EDM - 06/12/23 at 2030 by ALBNI PER MD QUIROZ D5 07/23 NS MAINTANCE FLUIDS.
--- NOTE | 2023-06-12 20:30 | NUR ---
PER MD ECHOLS HANG D5 1/2 NS MAINTANCE FLUIDS REGARDLESS OF BLOOD SUGAR.
[2023-06-12] MEDS: dextrose 5%-1/2 normal saline 1,000 ML IV SCH (20:31)
--- NOTE | 2023-06-12 22:01 | NUR ---
MD ECHOLS NOTIFIED WITHDRAWL PROTCOL ORDERS WERE NOT COMPLETE. NO FURTHER ORDERS AT THIS TIME.
[2023-06-12 22:45] VITALS: BP 110/60; PULSE 89; RESP 18; TEMP 98.6; O2SAT 100
--- NOTE | 2023-06-12 23:27 | NUR ---
MD Martinez called for withdrawal protocol for pt as it is mentioned in the H&P per MD Castro. No orders are in at this time for the protocol and MD Martinez does not wish to enter any orders at this time as the pt is not actively experiencing symptoms of withdrawal.
[2023-06-13] VITALS (7 sets, daily range): BP systolic 110–160; BP diastolic 63–74; PULSE 80–89; RESP 11–20; TEMP 97.3–98.5; O2SAT 96–100
--- NOTE | 2023-06-13 00:47 | NUR ---
Report received from Samantha RHODES. Pt arrived to unit at 2245 on 06/12 from ER. Pt arrived via wheelchair and ambulated to bed without difficulty. Girlfriend was with pt when he arrived. Pt vital signs stable, MRSA swab collected, manager monitoring placed, and skin check performed. Pt has D5% 1/2 NS running at 100 mL/hr to 18g in R AC. Pt is stable and all needs are met at this time
[2023-06-13] MEDS: HYDROcodone/acetaminophen 5mg/325mg tablet PO PRN (03:03)
[2023-06-13] MEDS: vancomycin/NS 1 GM ADD-VANTAGE 250 ML IV SCH ×2 (04:44→17:08)
--- NOTE | 2023-06-13 06:27 | NUR ---
Problems reprioritized. Patient report given, questions answered & plan of care reviewed with Gricelda RHODES. Pt stable at transfer of care
[2023-06-13] MEDS: dextrose 5%-1/2 normal saline 1,000 ML IV SCH (06:30)
[2023-06-13 07:05] LABS: BASOPHILS % (AUTO) 0.1 % (0-1); EOSINOPHILS # (AUTO) 0.2 X10'3 (0-0.9); EOSINOPHILS % (AUTO) 1.1 % (0-6); HEMOGLOBIN 13.9 g/dl (14.0-17.9); LYMPHOCYTES # (AUTO) 1.8 X10'3 (1.1-4.8); LYMPHOCYTES % (AUTO) 11.4 % (21-51); MEAN CORPUSCULAR HEMOGLOBIN 30.6 PG (27.0-31.0); MEAN CORPUSCULAR HGB CONC 33.2 g/dL (33.0-36.5); MEAN CORPUSCULAR VOLUME 92.2 FL (78-98); MEAN PLATELET VOLUME 8.8 FL (7.4-10.4); MONOCYTES # (AUTO) 1.1 X10'3 (0-0.9); MONOCYTES % (AUTO) 6.8 % (2-12); NEUTROPHILS % (AUTO) 80.6 % (42-75); PLATELET COUNT 146 X10'3 (140-440); RED BLOOD COUNT 4.55 X10'6 (4.70-6.10); RED CELL DISTRIBUTION WIDTH 14.1 % (11.5-14.5); WHITE BLOOD COUNT 16.1 X10'3 (4.5-11.0)
[2023-06-13 07:20] LABS: INR 1.1 INR; PROTHROMBIN TIME 11.9 SECONDS (9.0-12.0)
[2023-06-13 07:27] LABS: ALANINE AMINOTRANSFERASE 309 U/L (12-78); ALBUMIN 2.8 G/DL (3.4-5.0); ALBUMIN/GLOBULIN RATIO 0.9 (1.1-1.5); ALKALINE PHOSPHATASE 142 IU/L (46-116); AMYLASE 48 U/L (25-115); ANION GAP 5 (8-16); ASPARTATE AMINO TRANSFERASE 202 U/L (10-37); BILIRUBIN,TOTAL 0.3 MG/DL (0.1-1.0); BLOOD UREA NITROGEN 13 MG/DL (7-18); BUN/CREATININE RATIO 10.7 (10.0-20.0); CALCIUM 8.2 MG/DL (8.5-10.1); CHLORIDE 107 MMOL/L (99-107); CREATININE 1.22 MG/DL (0.60-1.10); GLUCOSE 128 MG/DL (70-104); LIPASE 102 U/L (16-77); MAGNESIUM 1.7 MG/DL (1.5-2.4); PHOSPHORUS 3.2 MG/DL (2.3-4.5); SODIUM 138 MMOL/L (135-145); TOTAL CARBON DIOXIDE 26.2 MMOL/L (24-32); TOTAL PROTEIN 5.9 G/DL (6.4-8.2); eCRCL 90 ML/MIN; eGFR 65 ML/MIN
[2023-06-13] MEDS: enoxaparin 40mg/0.4ml syringe SUBCUT SCH (08:00)
[2023-06-13] MEDS: docusate sod 100mg capsule PO SCH ×2 (08:00→19:56)
[2023-06-13] MEDS: K and/or MAG REPLACEMENT MC SCH ×2 (08:00→20:00)
[2023-06-13] MEDS ORDERED: haloperidol lactate 5mg/ml inj IM PRN (08:25)
[2023-06-13] MEDS ORDERED: LORazepam 1 MG tablet PO PRN (08:25)
[2023-06-13] MEDS ORDERED: haloperidol 5mg tablet PO PRN (08:25)
[2023-06-13] MEDS ORDERED: LORazepam 2 mg/ml vial IV PRN (08:25)
[2023-06-13] MEDS: nicotine 14mg patch - 24hr TD SCH (09:00)
[2023-06-13] MEDS: thiamine 100mg/ml 2ml inj. IV SCH ×2 (12:09→21:23)
[2023-06-13] MEDS: folic acid 1mg/0.2ml inj IV SCH (12:10)
[2023-06-13] MEDS: HYDROcodone/acetaminophen 10/325mg tab PO PRN (12:17)
--- NOTE | 2023-06-13 14:22 | NUR ---
discussing plan of care with pt, he is agreeable to HIDA scan tomorrow, aware of NPO status, pt verbalized understanding plan of care, has no questions
[2023-06-13 14:58] LABS: BILIRUBIN,URINE NEGATIVE (Neg); CLARITY,URINE CLEAR (Clear); COLOR,URINE YELLOW (Yellow); GLUCOSE, URINE NEGATIVE (Neg); KETONES,URINE NEGATIVE (Neg); LEUKOCYTE ESTERASE ,URINE NEGATIVE (Neg); NITRITES, URINE NEGATIVE (Neg); OCCULT BLOOD,URINE NEGATIVE (Neg); PROTEIN,URINE NEGATIVE (Neg); UROBILINOGEN,URINE 0.2 E.U/dL (0.2-1.0)
[2023-06-13 15:00] LABS: UA COLLECTION TYPE NON-SPECIFIED
[2023-06-13 15:17] LABS: URINE AMPHETAMINE SCREEN POSITIVE (Neg); URINE BARBITUATE SCREEN NEGATIVE (Neg); URINE BENZODIAZEPINES SCREEN NEGATIVE (Neg); URINE CANNABINOID SCREEN POSITIVE (Neg); URINE COCAINE SCREEN NEGATIVE (Neg); URINE METHADONE SCREEN NEGATIVE (Neg); URINE OPIATE SCREEN POSITIVE (Neg); URINE PHENCYCLIDINE SCREEN NEGATIVE (Neg)
[2023-06-13] MEDS ORDERED: acetaminophen 325mg tablet PO PRN (15:20)
[2023-06-13] MEDS: normal saline 1000ml 1,000 ML IV SCH (17:12)
--- NOTE | 2023-06-13 18:15 | NUR ---
Patient in room PCU 3016B. I have received report from JESUS RHODES and had the opportunity to ask questions and assume patient care.
[2023-06-13] MEDS: piperacillin/tazo 3.375gm/50ml 100 ML IV SCH (19:17)
[2023-06-14] MEDS: piperacillin/tazo 3.375gm/50ml 100 ML IV SCH ×3 (00:20→16:58)
[2023-06-14] MEDS ORDERED: VANCOMYCIN LEVEL IV ONE (04:30)
[2023-06-14] MEDS: vancomycin/NS 1 GM ADD-VANTAGE 250 ML IV SCH ×2 (05:19→19:49)
[2023-06-14] MEDS: normal saline 1000ml 1,000 ML IV SCH (05:19)
[2023-06-14 06:00] VITALS: BP 110/77; PULSE 80; RESP 16; TEMP 98.4; O2SAT 97
--- NOTE | 2023-06-14 06:19 | NUR ---
Problems reprioritized. Patient report given, questions answered & plan of care reviewed with CARMELO LEE.
[2023-06-14] MEDS: docusate sod 100mg capsule PO SCH ×2 (08:00→20:00)
[2023-06-14] MEDS: enoxaparin 40mg/0.4ml syringe SUBCUT SCH (08:00)
[2023-06-14] MEDS: K and/or MAG REPLACEMENT MC SCH ×2 (08:00→20:00)
[2023-06-14] MEDS: nicotine 14mg patch - 24hr TD SCH (08:00)
[2023-06-14 08:27] LABS: BASOPHILS % (AUTO) 0.5 % (0-1); EOSINOPHILS # (AUTO) 0.2 X10'3 (0-0.9); EOSINOPHILS % (AUTO) 2.4 % (0-6); HEMATOCRIT 43.7 % (42.0-52.0); HEMOGLOBIN 14.6 g/dl (14.0-17.9); LYMPHOCYTES # (AUTO) 1.4 X10'3 (1.1-4.8); LYMPHOCYTES % (AUTO) 15.5 % (21-51); MEAN CORPUSCULAR HEMOGLOBIN 30.6 PG (27.0-31.0); MEAN CORPUSCULAR HGB CONC 33.4 g/dL (33.0-36.5); MEAN CORPUSCULAR VOLUME 91.9 FL (78-98); MEAN PLATELET VOLUME 9.1 FL (7.4-10.4); MONOCYTES # (AUTO) 0.7 X10'3 (0-0.9); NEUTROPHILS # (AUTO) 6.6 X10'3 (1.8-7.7); NEUTROPHILS % (AUTO) 73.6 % (42-75); PLATELET COUNT 154 X10'3 (140-440); RED BLOOD COUNT 4.76 X10'6 (4.70-6.10); RED CELL DISTRIBUTION WIDTH 14.1 % (11.5-14.5); WHITE BLOOD COUNT 8.9 X10'3 (4.5-11.0)
[2023-06-14 08:46] LABS: ALANINE AMINOTRANSFERASE 211 U/L (12-78); ALBUMIN 2.9 G/DL (3.4-5.0); ALBUMIN/GLOBULIN RATIO 0.9 (1.1-1.5); ALKALINE PHOSPHATASE 113 IU/L (46-116); ANION GAP 5 (8-16); ASPARTATE AMINO TRANSFERASE 91 U/L (10-37); BILIRUBIN,TOTAL 0.3 MG/DL (0.1-1.0); BLOOD UREA NITROGEN 9 MG/DL (7-18); BUN/CREATININE RATIO 8.7 (10.0-20.0); CALCIUM 8.4 MG/DL (8.5-10.1); CHLORIDE 105 MMOL/L (99-107); CREATININE 1.03 MG/DL (0.60-1.10); GLUCOSE 109 MG/DL (70-104); POTASSIUM 4.5 MMOL/L (3.5-5.1); SODIUM 136 MMOL/L (135-145); TOTAL CARBON DIOXIDE 26.2 MMOL/L (24-32); TOTAL PROTEIN 6.3 G/DL (6.4-8.2); eCRCL 107 ML/MIN; eGFR 80 ML/MIN
[2023-06-14 08:47] LABS: AMYLASE 66 U/L (25-115); C-REACTIVE PROTEIN 5.35 MG/DL (0.0-0.5); LIPASE 153 U/L (16-77); MAGNESIUM 1.7 MG/DL (1.5-2.4); PHOSPHORUS 2.6 MG/DL (2.3-4.5); VANCOMYCIN,TROUGH 15.8 ug/mL (10.0-20.0)
[2023-06-14] MEDS ORDERED: sincalide inj 1.7 MCG in normal saline 100ml IV soln 100 ML IV ONE (09:00)
[2023-06-14 09:07] LABS: PROTHROMBIN TIME 10.8 SECONDS (9.0-12.0)
--- NOTE | 2023-06-14 09:16 | NUR ---
Notified Dr. Ramos of positive MRSA nasal swab.
[2023-06-14 11:18] LABS: HIV ANTIBODY 1&2 RAPID NON-REACTIVE (Neg)
[2023-06-14 12:00] VITALS: BP 111/67; PULSE 79; RESP 12; O2SAT 95
[2023-06-14] MEDS: folic acid 1mg/0.2ml inj IV SCH (12:06)
[2023-06-14] MEDS: thiamine 100mg/ml 2ml inj. IV SCH ×3 (12:06→21:05)
[2023-06-14] MEDS: HYDROcodone/acetaminophen 10/325mg tab PO PRN ×2 (12:07→19:58)
[2023-06-14] MEDS: multivitamins, therapeutics tablet PO SCH (12:07)
[2023-06-14 15:00] VITALS: BP 119/74; PULSE 75; RESP 22; TEMP 98.1; O2SAT 93
[2023-06-14] MEDS ORDERED: GADOTERATE MEGLUMINE 7.5 MMOL/15 ML VIAL IV ONE (17:15)
[2023-06-14 18:00] VITALS: BP 137/83; PULSE 81; RESP 20; TEMP 97.6; O2SAT 98
--- NOTE | 2023-06-14 18:30 | NUR ---
Patient in room PCU 3016. I have received report from CARMELO LEE and had the opportunity to ask questions and assume patient care.
[2023-06-14 22:00] VITALS: BP 125/81; PULSE 76; RESP 18; TEMP 97.6; O2SAT 100
[2023-06-15] MEDS: piperacillin/tazo 3.375gm/50ml 50 ML IV SCH ×2 (00:44→07:42)
[2023-06-15 02:00] VITALS: BP 124/73; PULSE 90; RESP 19; TEMP 97.9; O2SAT 96
[2023-06-15] MEDS: normal saline 1000ml 1,000 ML IV SCH ×2 (05:13→08:55)
[2023-06-15] MEDS: vancomycin/NS 1 GM ADD-VANTAGE 250 ML IV SCH (05:17)
[2023-06-15 05:58] LABS: PROTHROMBIN TIME 10.5 SECONDS (9.0-12.0)
[2023-06-15 06:00] VITALS: BP 111/80; PULSE 102; RESP 19; TEMP 98.1; O2SAT 95
[2023-06-15 06:00] LABS: BASOPHILS % (AUTO) 0.4 % (0-1); EOSINOPHILS # (AUTO) 0.2 X10'3 (0-0.9); EOSINOPHILS % (AUTO) 3.2 % (0-6); HEMATOCRIT 48.6 % (42.0-52.0); HEMOGLOBIN 16.3 g/dl (14.0-17.9); LYMPHOCYTES # (AUTO) 1.4 X10'3 (1.1-4.8); LYMPHOCYTES % (AUTO) 18.9 % (21-51); MEAN CORPUSCULAR HEMOGLOBIN 30.8 PG (27.0-31.0); MEAN CORPUSCULAR HGB CONC 33.4 g/dL (33.0-36.5); MEAN CORPUSCULAR VOLUME 92.2 FL (78-98); MEAN PLATELET VOLUME 9.2 FL (7.4-10.4); MONOCYTES # (AUTO) 0.7 X10'3 (0-0.9); MONOCYTES % (AUTO) 9.7 % (2-12); NEUTROPHILS # (AUTO) 5.1 X10'3 (1.8-7.7); NEUTROPHILS % (AUTO) 67.8 % (42-75); PLATELET COUNT 189 X10'3 (140-440); RED BLOOD COUNT 5.27 X10'6 (4.70-6.10); WHITE BLOOD COUNT 7.5 X10'3 (4.5-11.0)
[2023-06-15 06:05] LABS: ALANINE AMINOTRANSFERASE 172 U/L (12-78); ALBUMIN 3.3 G/DL (3.4-5.0); ALBUMIN/GLOBULIN RATIO 0.8 (1.1-1.5); ALKALINE PHOSPHATASE 115 IU/L (46-116); AMYLASE 51 U/L (25-115); ANION GAP 3 (8-16); ASPARTATE AMINO TRANSFERASE 55 U/L (10-37); BILIRUBIN,TOTAL 0.3 MG/DL (0.1-1.0); BLOOD UREA NITROGEN 12 MG/DL (7-18); C-REACTIVE PROTEIN 2.81 MG/DL (0.0-0.5); CALCIUM 9.2 MG/DL (8.5-10.1); CHLORIDE 102 MMOL/L (99-107); GLUCOSE 131 MG/DL (70-104); LIPASE 29 U/L (16-77); MAGNESIUM 1.9 MG/DL (1.5-2.4); PHOSPHORUS 4.3 MG/DL (2.3-4.5); POTASSIUM 4.5 MMOL/L (3.5-5.1); SODIUM 136 MMOL/L (135-145); TOTAL PROTEIN 7.2 G/DL (6.4-8.2); eCRCL 92 ML/MIN; eGFR 67 ML/MIN
--- NOTE | 2023-06-15 06:35 | NUR ---
Problems reprioritized. Patient report given, questions answered & plan of care reviewed with CARMELO ESPINAL.
--- NOTE | 2023-06-15 06:38 | NUR ---
Patient in room PCU 3012. I have received report from Soraida RHODES and had the opportunity to ask questions and assume patient care.
[2023-06-15] MEDS: multivitamins, therapeutics tablet PO SCH (07:46)
[2023-06-15] MEDS: folic acid 1mg/0.2ml inj IV SCH (07:46)
[2023-06-15] MEDS: enoxaparin 40mg/0.4ml syringe SUBCUT SCH ×2 (07:46→08:00)
[2023-06-15] MEDS: thiamine 100mg/ml 2ml inj. IV SCH ×2 (07:46→12:19)
[2023-06-15] MEDS: nicotine 14mg patch - 24hr TD SCH (08:00)
[2023-06-15] MEDS: K and/or MAG REPLACEMENT MC SCH (08:00)
[2023-06-15] MEDS: docusate sod 100mg capsule PO SCH (08:00)
[2023-06-15 09:13] LABS: HBSAG SCREEN Negative (Negative); HEPATITIS C VIRUS ANTIBODY Non Reactive (Non Reactive)
[2023-06-15 11:00] VITALS: BP 126/70; PULSE 86; RESP 22; TEMP 99.3; O2SAT 93
[2023-06-15] MEDS: HYDROcodone/acetaminophen 5mg/325mg tablet PO PRN (12:16)
[2023-06-15] MEDS ORDERED: chlorhexidine gluconate 15ml Cup****oral rinse MM SCH (12:25)
[2023-06-15] MEDS ORDERED: AMOX-580 PO (12:40)
[2023-06-15] MEDS ORDERED: ACYC5CRE2 TOP (12:40)
[2023-06-15] MEDS ORDERED: MULT-25 PO (12:40)
--- NOTE | 2023-06-15 14:15 | NUR ---
Pt D/C per hospitalist. PIV removed, cannula intact. Tele discontinued. Reviewed discharge instructions with patient and significant other, all questions and concerns addressed. RX was e-scribed to patient's preferred pharmacy ([facility] Pt was wheeled down to lobby by staff toxicologist and taken home by significant other. Pt stable and appropriate for discharge.
[2023-06-15] MEDS ORDERED: LEVO750T68 PO (20:18)
== END 2023-06-15 14:15 | disposition home or self-care (01) | DRG 871 ==
LOC: ER 12:06 → PCU 3S 18:33 → EDBEDREQTM 22:55
PROVIDERS: ADMIT Internal Medicine; ATTEND Internal Medicine
PROC: BW211ZZ Computerized Tomography (CT Scan) of Abdomen and Pelvis using Low Osmolar Contrast (ICD-10-PCS; principal; 2023-06-12)
PROC: [UNRECOGNIZED PROCEDURE] (2023-06-14)
DX: A41.9 Sepsis, unspecified organism (principal); N17.0 Acute kidney failure with tubular necrosis; G89.29 Other chronic pain; M54.9 Dorsalgia, unspecified; K04.7 Periapical abscess without sinus; E80.6 Other disorders of bilirubin metabolism; R74.01 Elevation of levels of liver transaminase levels; F10.20 Alcohol dependence, uncomplicated; F17.200 Nicotine dependence, unspecified, uncomplicated; F15.10 Other stimulant abuse, uncomplicated; Z79.899 Other long term (current) drug therapy
CPT/HCPCS: 36415; 71045; 72157; 72158; 74177; 74181; 78227; 80053; 80202; 80305; 81003; 82150; 83605; 83690; 83735; 83880; 84100; 84145; 84484; 85025; 85610; 85651; 86140; 86703; 86803; 87040; 87081; 87340; 87522; 93306; 96361; 96365; 96367; 99285; A6258; A9537; A9575; J0696; J1650; J2060; J2405; J2543; J2805; J3370; J3411; J3490; J7030; Q9967

== ENCOUNTER 2023-08-17 16:20 | Emergency (ER) | payer SELFPAY ==
[~2023-08-17] VITALS: Ht 182.9 cm; Wt 80.6 kg
[~2023-08-17 16:20] MED LIST changes: +ACYC5CRE2 TOP; -CEPH-585 PO; +MULT-25 PO
[2023-08-17] MEDS ORDERED: dexamethasone sod phosphate 10mg/ml inj IM STA ×2 (16:42→18:15)
[2023-08-17 17:24] LABS: BILIRUBIN,URINE NEGATIVE (Neg); CLARITY,URINE CLEAR (Clear); COLOR,URINE YELLOW (Yellow); GLUCOSE, URINE NEGATIVE (Neg); KETONES,URINE TRACE mg/dl (Neg); LEUKOCYTE ESTERASE ,URINE NEGATIVE (Neg); NITRITES, URINE NEGATIVE (Neg); OCCULT BLOOD,URINE NEGATIVE (Neg); PROTEIN,URINE NEGATIVE (Neg); UROBILINOGEN,URINE 0.2 E.U/dL (0.2-1.0)
[2023-08-17 17:35] LABS: UA COLLECTION TYPE CLN CATCH MIDSTREAM
[2023-08-17] MEDS ORDERED: cyclobenzaprine 10mg tablet PO ONE (18:15)
[2023-08-17] MEDS ORDERED: HYDROcodone/acetaminophen 10/325mg tab PO ONE (18:15)
[2023-08-17] MEDS ORDERED: ketorolac trometh inj. 60 MG/2 ML VIAL IM ONE (18:15)
[2023-08-17] MEDS ORDERED: ondansetron 4mg rapidly disintigrating tab PO ONE (18:15)
[2023-08-17] MEDS ORDERED: LIDO700A32 TOP (18:21)
[2023-08-17] MEDS ORDERED: PRED20TA PO (18:21)
[2023-08-17] MEDS ORDERED: CYCL-1 PO (18:21)
[2023-08-17 18:45] VITALS: BP 113/74; PULSE 90; RESP 18; TEMP 98.5; O2SAT 96
== END 2023-08-17 18:46 | disposition home or self-care (01) ==
LOC: ER 16:20
DX: M54.16 Radiculopathy, lumbar region (principal); G89.29 Other chronic pain; M54.50 Low back pain, unspecified; F15.10 Other stimulant abuse, uncomplicated; Z87.81 Personal history of (healed) traumatic fracture; Z79.899 Other long term (current) drug therapy
CPT/HCPCS: 72110; 81003; 96372; 99284; J1100; J1885

== ENCOUNTER 2023-10-07 18:24 | Emergency (ER) | payer OTHER ==
[~2023-10-07] VITALS: Ht 182.9 cm; Wt 79.7 kg
[~2023-10-07 18:24] MED LIST changes: +LIDO700A32 TOP
[2023-10-07 18:27] VITALS: BP 132/82; PULSE 97; O2SAT 98
[2023-10-07] MEDS: acetaminophen 325mg tablet PO ONE (19:59)
[2023-10-07 20:34] VITALS: RESP 18
[2023-10-07] MEDS: HYDROcodone/acetaminophen 10/325mg tab PO ONE (20:34)
[2023-10-07] MEDS ORDERED: HYDR-3965 PO (22:53)
[2023-10-07] MEDS: HYDROmorphone 1 mg/ml syringe IM ONE (23:08)
[2023-10-07 23:12] VITALS: TEMP 98
== END 2023-10-07 23:24 | disposition home or self-care (01) ==
LOC: ER 18:25
DX: S46.911A Strain of unspecified muscle, fascia and tendon at shoulder and upper arm level, right arm, initial encounter (principal); S90.31XA Contusion of right foot, initial encounter; S40.211A Abrasion of right shoulder, initial encounter; G89.29 Other chronic pain; M54.9 Dorsalgia, unspecified; F15.10 Other stimulant abuse, uncomplicated; X58.XXXA Exposure to other specified factors, initial encounter; Y93.89 Activity, other specified; Y92.89 Other specified places as the place of occurrence of the external cause; Y99.8 Other external cause status
CPT/HCPCS: 73030; 73564; 73610; 73630; 96372; 99284; J1170; A6402; A6446; A6449

== ENCOUNTER 2023-12-27 22:32 | Emergency (ER) | payer SELFPAY ==
[~2023-12-27] VITALS: Ht 182.9 cm; Wt 86.4 kg
[2023-12-27 23:02] VITALS: TEMP 98.2
[2023-12-27] MEDS ORDERED: ketorolac trometh. 30mg/ml inj. IV ONE (23:15)
[2023-12-27] MEDS: ketorolac tromethamine 15mg/ml inj. IV ONE (23:25)
[2023-12-27] MEDS: HYDROcodone/acetaminophen 5mg/325mg tablet PO ONE (23:25)
[2023-12-27] MEDS: acetaminophen 1,000mg/100ml IV 100 ML IV STA (23:40)
[2023-12-27 23:44] LABS: BASOPHILS # (AUTO) 0.1 X10'3 (0-0.2); BASOPHILS % (AUTO) 0.6 % (0-1); EOSINOPHILS # (AUTO) 0.2 X10'3 (0-0.9); HEMATOCRIT 47.2 % (42.0-52.0); HEMOGLOBIN 16.1 g/dl (14.0-17.9); LYMPHOCYTES # (AUTO) 1.9 X10'3 (1.1-4.8); LYMPHOCYTES % (AUTO) 17.8 % (21-51); MEAN CORPUSCULAR HEMOGLOBIN 31.1 PG (27.0-31.0); MEAN CORPUSCULAR VOLUME 91.5 FL (78-98); MEAN PLATELET VOLUME 9.1 FL (7.4-10.4); MONOCYTES # (AUTO) 0.7 X10'3 (0-0.9); NEUTROPHILS # (AUTO) 7.6 X10'3 (1.8-7.7); NEUTROPHILS % (AUTO) 72.6 % (42-75); PLATELET COUNT 268 X10'3 (140-440); RED BLOOD COUNT 5.16 X10'6 (4.70-6.10); RED CELL DISTRIBUTION WIDTH 14.7 % (11.5-14.5); WHITE BLOOD COUNT 10.5 X10'3 (4.5-11.0)
[2023-12-27] MEDS: diazepam inj 5 MG/ML inj. IV ONE (23:51)
[2023-12-27 23:59] LABS: PROTHROMBIN TIME 10.8 SECONDS (9.0-12.0)
[2023-12-28 00:03] LABS: ALANINE AMINOTRANSFERASE 46 U/L (12-78); ALBUMIN 3.9 G/DL (3.4-5.0); ALBUMIN/GLOBULIN RATIO 0.9 (1.1-1.5); ALKALINE PHOSPHATASE 113 IU/L (46-116); ANION GAP 5 (8-16); ASPARTATE AMINO TRANSFERASE 53 U/L (10-37); BILIRUBIN,TOTAL 0.3 MG/DL (0.1-1.0); BLOOD UREA NITROGEN 17 MG/DL (7-18); CALCIUM 9.2 MG/DL (8.5-10.1); CHLORIDE 102 MMOL/L (99-107); CREATININE 1.31 MG/DL (0.60-1.10); GLUCOSE 98 MG/DL (70-104); POTASSIUM 4.1 MMOL/L (3.5-5.1); SODIUM 137 MMOL/L (135-145); TOTAL CARBON DIOXIDE 30.5 MMOL/L (24-32); TOTAL PROTEIN 8.3 G/DL (6.4-8.2); eCRCL 81 ML/MIN; eGFR 60 ML/MIN
[2023-12-28] MEDS ORDERED: iohexol 300mg/ml 100ml inj. ONE (00:24)
[2023-12-28] MEDS ORDERED: DIAZ-63 PO (01:51)
[2023-12-28 02:23] VITALS: BP 138/78; PULSE 93; RESP 16; O2SAT 98
== END 2023-12-28 02:13 | disposition home or self-care (01) ==
LOC: ER 22:33
DX: S22.42XA Multiple fractures of ribs, left side, initial encounter for closed fracture (principal); M62.830 Muscle spasm of back; F15.90 Other stimulant use, unspecified, uncomplicated; Z79.2 Long term (current) use of antibiotics; Z79.899 Other long term (current) drug therapy; V89.2XXA Person injured in unspecified motor-vehicle accident, traffic, initial encounter; Y93.89 Activity, other specified; Y92.89 Other specified places as the place of occurrence of the external cause; Y99.8 Other external cause status
CPT/HCPCS: 36415; 71046; 71260; 74177; 80053; 85025; 85610; 86885; 86900; 86901; 96374; 96375; 99285; J0131; J3360; J3490; Q9967

== ENCOUNTER 2025-02-25 22:08 | Emergency (ER) | payer MEDICAID ==
[~2025-02-25] VITALS: Ht 185.4 cm; Wt 85.9 kg
[~2025-02-25 22:08] MED LIST changes: +DIAZ-63 PO; +LIDO-52 TOP; -LIDO700A32 TOP
[2025-02-25 22:20] VITALS: BP 114/72; PULSE 89; RESP 16; O2SAT 96
--- NOTE | 2025-02-25 22:36 | Physician Documentation ---
History of Present Illness ~ Chief Complaint: Medical Clearance Stated Complaint: MED CLEARANCE Time Seen by MD: 22:28 Primary Medical Doctor: NO PMD HPI 44-year-old male presents requesting medical clearance for methamphetamine so he can go to recovery. Also is requesting ST I urine test .denies any symptoms. Last use of methamphetamine was three days ago Day of Onset: Feb 25, 2025 Tetanus within 5 years?: Yes Medication Reconciliation Allergies: Coded Allergies: No Known Allergies (Unverified , 02/25/25) Scheduled Acyclovir Cream* (Zovirax Cream*), 1 APPLIC TOP Q6H Cyclobenzaprine* (Cyclobenzaprine*), 1 TAB PO BID Cyclobenzaprine* (Cyclobenzaprine*), 1 TAB PO Q8H Cyclobenzaprine* (Cyclobenzaprine*), 1 TAB PO HS Lactobacillus Rhamnosus (Culturelle), 10,000 MMU PO Q12H Lidocaine (Lidoderm), 1 PATCH TOP DAILY Multivitamin with Folic Acid (Thera Tablet), 1 EACH PO Q24H Valacyclovir HCl (Valacyclovir), 1 TAB PO DAILY Scheduled PRN Diazepam (Valium), 1 TAB PO TID PRN PRN for muscle spasm Past Medical History Past Medical History: Chronic Back Pain, Extremity Fracture, Herpes Simplex Past Surgical History: orthopedic surgeries Alcohol Use: Occasionally Drug Use: methamphetamine Lives with: Family Lives In: Home Review of Systems All Other Systems at this time: Reviewed and Negative ROS As stated above in the HPI, otherwise all systems are reviewed and negative. Physical Exam Vital Signs: Temperature: 97.6, Source: Temporal, Heart Rate: 89, Respiratory Rate: 16, BP: 114/72, Pulse Oximetry: 96, Weight: 85.900 Oxygen Flow Rate: 0 Physical Exam General: Alert, no apparent distress. Respiratory: Lungs clear, no respiratory distress. Chest: No accessory muscle use. Cardiovascular: Regular rate and rhythm, no murmurs. Gastrointestinal: Soft, nontender, nondistended. Bowels sounds present. Neurologic: Oriented x4. Psychiatric: Normal mood and affect. Skin: Normal color, warm and dry. No edema, no ecchymosis. Progress Results/Orders Results/Orders Orders - KARSTEN KOWALSKI ICE CREAM TRUCK DRIVER Chlam/Gc Amp Ur (02/25/25 22:28) Vital Signs 02/25/25 02/25/25 22:20 22:43 Temp 97.6 97.6 Pulse 89 Resp 16 B/P (MAP) 114/72 Pulse Ox 96 O2 Flow Rate 0 Laboratory Tests Test 02/25/25 22:00 Medical Decision Making Findings Call patient back for any positive urine test . at this time I do not see any reason to not medically clear him for recovery. Vital signs were reassuring does not appear acutely ill Differential Dx:Considerations: Include: Intoxication-Alcohol, Intoxication- Other drug, Personality disorder, Substance abuse disorder, Acute delirium, Closed head injury, Cervical spine injury, Skull fracture, Fracture(s), Abrasion, Contusion, Foreign body, Hematoma, Laceration, Alcohol withdrawl syndrom, Encephalopathy, Hepatitis, Medically stable, Other Departure Disposition: 01 HOME / SELF CARE / HOMELESS Impression: Primary Impression: General medical exam Condition: Stable Discharge Instructions: Medical Screening Exam Additional Instructions: Medically cleared for recovery Referrals: NO PRIMARY CARE PROVIDER (PCP) Signature Scribe Signature: y Attestation: Scribed for Karsten Kowalski Financial Aid Officer by Karsten Michel NP . 02/25/25 23:47 KARSTEN KOWALSKI NP Feb 25, 2025 22:36
[2025-02-25 22:43] VITALS: TEMP 97.6
== END 2025-02-25 22:48 | disposition home or self-care (01) ==
LOC: ER 22:08
DX: Z00.8 Encounter for other general examination (principal); F15.90 Other stimulant use, unspecified, uncomplicated
CPT/HCPCS: 36415; 87491; 99283

== ENCOUNTER 2025-07-16 11:12 | Emergency (ER) | payer MEDICAID ==
[~2025-07-16] VITALS: Ht 182.9 cm; Wt 81.4 kg
[2025-07-16 11:15] VITALS: BP 102/55; PULSE 113; O2SAT 95
--- NOTE | 2025-07-16 12:01 | Physician Documentation ---
History of Present Illness ~ Chief Complaint: Back Pain Stated Complaint: BACK PAIN Time Seen by MD: 11:46 Primary Medical Doctor: NO PMD Source: patient Mode of Arrival: POV Exam Limitations: no limitations HPI 44-year-old male with history of lumbar back injury and chronic pain. Patient was lifting a heavy piece of wood a day ago with his son approximately 200 lb when he was lifting follow up pop in his lumbar back with increased pain difficulty ambulating with pain raising his left leg. No difficulty with bowel or bladder control. No saddle paresthesia. Patient has muscle relaxers at home which did not help. Medication Reconciliation Allergies: Coded Allergies: No Known Allergies (Unverified , 02/25/25) Scheduled Acyclovir Cream* (Zovirax Cream*), 1 APPLIC TOP Q6H Cyclobenzaprine* (Cyclobenzaprine*), 1 TAB PO BID Cyclobenzaprine* (Cyclobenzaprine*), 1 TAB PO Q8H Cyclobenzaprine* (Cyclobenzaprine*), 1 TAB PO HS Lactobacillus Rhamnosus (Culturelle), 10,000 MMU PO Q12H Lidocaine (Lidoderm), 1 PATCH TOP DAILY Multivitamin with Folic Acid (Thera Tablet), 1 EACH PO Q24H Valacyclovir HCl (Valacyclovir), 1 TAB PO DAILY Scheduled PRN Diazepam (Valium), 1 TAB PO TID PRN PRN for muscle spasm Past Medical History Past Medical History: Chronic Back Pain, Extremity Fracture, Herpes Simplex Past Surgical History: orthopedic surgeries Alcohol Use: Occasionally Drug Use: methamphetamine Lives with: Family Lives In: Home Review of Systems All Other Systems at this time: Reviewed and Negative Musculoskeletal: Reports: see HPI Physical Exam Physical Exam Vital Signs: Temperature: 98.0, Source: Temporal, Heart Rate: 113, Respiratory Rate: 16, BP: 102/55, Pulse Oximetry: 95, Weight: 81.400 Oxygen Flow Rate: 0 Progress Results/Orders Results/Orders Orders - TISH ZAVALA BANK VAULT CLERK Lumbar Spine Complte (07/16/25 11:55) Completed Orders - TISH ZAVALA BANK VAULT CLERK Lumbar Spine Complte (07/16/25 11:55) Hydrocodone/Apap 10/325 ([place] 10/325mg (07/16/25 11:55) Ibuprofen Tablet (Motrin Tablet) (07/16/25 11:55) Medications Received in ER Medications (Trade) Dose Ordered Sig/Jarrett Route PRN Reason Start Time Stop Time Status Last Admin Dose Admin ([place] 10/325mg tab) 1 tab ONCE ONCE PO 07/16/25 11:55 07/16/25 12:00 DC 07/16/25 12:07 1 TAB (Motrin tablet) 800 mg ONCE ONCE PO 07/16/25 11:55 07/16/25 12:00 DC 07/16/25 12:07 800 MG Vital Signs 07/16/25 07/16/25 11:15 12:07 Temp 98.0 Pulse 113 Resp 16 16 B/P (MAP) 102/55 Pulse Ox 95 O2 Flow Rate 0 EKG/XRAY/CT/US/VASC/MRI Bone/Soft Tissue X-Ray (Spine) : Additional Comment INDICATION: Lumbar back pain lifting injury TECHNIQUE: 4 views of the lumbar spine were obtained. COMPARISON: DI LUMBAR SPINE COMPLTE on DOS: 08/17/23, MR MRI LUMBAR SPINE on DOS: 06/14/23 FINDINGS: There are no acute fractures or subluxations. Degenerative disc space narrowing at L1-L2. IMPRESSION: No acute fracture or subluxation. Medical Decision Making Additional information obtaine: family Findings X-ray was received 4 signs of fracture or compression. X-rays were negative medications for pain with a cute on chronic back pain. Patient will follow up with primary care for further treatment and images Differential Dx:Considerations: Fracture, Strain, Other Departure Time of Disposition: 13:02 Disposition: 01 HOME / SELF CARE / HOMELESS Impression: Primary Impression: Strain of lumbar region Additional Impression: Sciatica Condition: Stable Discharge Instructions: Chronic Back Pain, Back Exercises Additional Instructions: The x-ray was negative for any acute abnormalities although you have symptoms of sciatic pain muscle strain from lifting. You do need to follow up with primary care for further images as well as more evaluation and treatment Referrals: NO PRIMARY CARE PROVIDER (PCP) Prescriptions Hydrocodone Bit/Acetaminophen 5/325 MG ([place] 5/325 MG) 5 Mg/325 Mg Tablet 1 TAB PO Q12H PRN PRN for pain for 5 Days, #10 TAB Prov: TISH ZAVALA NP 07/16/25 Lidocaine (Lidocaine) 5 % Adh..patch 1 PATCH TOP DAILY for 30 Days, #30 PATCH 0 Refills Prov: TISH ZAVALA NP 07/16/25 Ibuprofen (Ibuprofen) 800 Mg Tablet 1 TAB PO Q8H for pain for 30 Days, #90 TAB 0 Refills Prov: TISH ZAVALA NP 07/16/25 Education Educated: Patient, Family Educated regarding: diagnosis, treatment, need for follow up Signature Scribe Signature: No scribe Attestation: The note accurately reflects work and decisions made by me.Tish YBARRA 07/16/25 13:04 TISH ZAVALA NP Jul 16, 2025 12:01
[2025-07-16 12:07] VITALS: RESP 16
[2025-07-16] MEDS: ibuprofen tablet 400 MG TABLET PO ONE (12:07)
[2025-07-16] MEDS: HYDROcodone/acetaminophen 10/325mg tab PO ONE (12:07)
--- NOTE | 2025-07-16 12:56 | RADIOLOGY REPORT ---
INDICATION: Lumbar back pain lifting injury TECHNIQUE: 4 views of the lumbar spine were obtained. COMPARISON: DI LUMBAR SPINE COMPLTE on DOS: 08/17/23, MR MRI LUMBAR SPINE on DOS: 06/14/23 FINDINGS: There are no acute fractures or subluxations. Degenerative disc space narrowing at L1-L2. IMPRESSION: No acute fracture or subluxation.
[2025-07-16] MEDS ORDERED: IBUP-1986 PO (13:03)
[2025-07-16] MEDS ORDERED: HYDR-3965 PO (13:03)
[2025-07-16] MEDS ORDERED: LIDO700A47 TOP (13:03)
[2025-07-16 13:08] VITALS: TEMP 98
== END 2025-07-16 13:09 | disposition home or self-care (01) ==
LOC: ER 11:13
DX: S39.012A Strain of muscle, fascia and tendon of lower back, initial encounter (principal); M54.42 Lumbago with sciatica, left side; G89.29 Other chronic pain; F15.90 Other stimulant use, unspecified, uncomplicated; Z79.899 Other long term (current) drug therapy; Z72.89 Other problems related to lifestyle; Z98.890 Other specified postprocedural states; X50.0XXA Overexertion from strenuous movement or load, initial encounter; Y93.89 Activity, other specified; Y92.89 Other specified places as the place of occurrence of the external cause; Y99.8 Other external cause status
CPT/HCPCS: 72110; 99283